=== PATIENT | female | born 1950 | race Caucasian/White ===

== ENCOUNTER 2018-11-24 18:47 | Emergency (ER) | payer MEDICARE, BC ==
[2018-11-24] MEDS ORDERED: Cephalexin CAP* 500 MG PO ONE ×2 (19:35→21:38)
--- NOTE | 2018-11-24 19:37 | ED ---
Lower Extremity - HPI Summary HPI Summary: This patient is a 67 year old F presenting to [facility] accompanied by female friend with a chief complaint of ankle ulcers since 11/09/18, per triage. Symptoms aggravated by nothing. Symptoms alleviated by nothing. Hx ankle ulcer, last dx was 36 yrs ago. Patient reports she has an ulcer in the back of her left and right ankle (right is healing better than her left), left lateral side of the left foot, swelling in her leg and foot, and discrete pain coming up her inner leg to her upper thigh. Pt reports she has some symptoms on her forearm and wrist but nothing that has developed into ulcers. 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 Pt reports that she visited Dr. 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 Pt reports she noticed at the appointment that the ulcer on her left foot is now white and has started to drip making her concerned that blood is not reaching that part of the foot leading to her visit to the ED today. Pt reports her leg is also never as swollen as it is now and that is redder today. Pt reports her ulcers hurt especially when she walked 1.8 miles yesterday. Patient denies fevers, appetite change, nausea, and hx heart dz. Pt reports she had a sonogram in 2016 which revealed no blood clots. Pt reports she takes B complex vitamin with folic acid, calcium, and NSAID and a low dose aspirin in evening with no other NSAIDs. - History of Current Complaint Chief Complaint: EDExtremityLower Stated Complaint: LEFT FOOT SWOLLEN,CHANGING COLORS PER PT Time Seen by Provider: 11/24/18 19:10 Hx Obtained From: Patient Onset/Duration: Still Present Pain Intensity: 8 Pain Scale Used: 0-10 Numeric Timing: Constant Associated Signs And Symptoms: Positive: Swelling, Redness Aggravating Factor(s): Nothing Alleviating Factor(s): Nothing - Allergies/Home Medications Allergies/Adverse Reactions: Allergies Allergy/AdvReac Type Severity Reaction Status Date / Time iodine Allergy Rash Verified 11/24/18 19:10 BANDAIDS Allergy Rash Uncoded 12/07/16 11:15 PMH/Surg Hx/FS Hx/Imm Hx Endocrine/Hematology History: Denies: Hx Diabetes Cardiovascular History: Denies: Hx Hypertension, Hx Pacemaker/ICD History: Denies: Hx Renal Disease Sensory History: Denies: Hx Hearing Aid Psychiatric History: Denies: Hx Panic Disorder - Cancer History Hx Chemotherapy: No Hx Radiation Therapy: No - Surgical History Surgery Procedure, Year, and Place: WISDOM TEETH Infectious Disease History: No Infectious Disease History: Denies: Traveled Outside the [place] in Last 30 Days - Family History Known Family History: Positive: Other - [place], Ulcers Negative: Hypertension, Diabetes - Social History Alcohol Use: Occasionally Hx Substance Use: No Substance Use Type: Reports: None Hx Tobacco Use: No Smoking Status (MU): Never Smoked Tobacco Review of Systems Positive: Other - denies appetite change. Negative: Fever Negative: Nausea Positive: Other - swelling of legs, ulcers in both feet and ankles, discrete pain coming up her inner leg to her upper thigh All Other Systems Reviewed And Are Negative: Yes Physical Exam - Summary Physical Exam Summary: Appearance: Well-appearing, Well-nourished, lying in bed comfortable Skin: Warm, dry, no obvious rash Eyes: sclera anicteric, no conjunctival pallor ENT: mucous membranes moist Neck: deferred Respiratory: No signs of respiratory distress Cardiovascular: Appears well perfused, pulses are nml Abdomen: deferred Musculoskeletal:left leg is swollen, erythematous and warm below the knee and into the foot, there is a large blister overlying the lateral side of the 5th MTP point which appears to be the center of acute inflammation, also a ulcer 2 cm long in medial ankle which has small amount of drainage, smaller ulcer on the medial side of the ankle which is dry Neurological: Awake and alert, mentation is normal, speech is fluent and appropriate Psychiatric: affect is normal, does not appear anxious or depressed Triage Information Reviewed: Yes Vital Signs On Initial Exam: Initial Vitals Temp Pulse Resp BP Pulse Ox 99.9 F 90 16 152/76 99 11/24/18 18:51 11/24/18 18:51 11/24/18 18:51 11/24/18 18:51 11/24/18 18:51 Vital Signs Reviewed: Yes Procedures - Sedation Patient Received Moderate/Deep Sedation with Procedure: No Diagnostics - Vital Signs Vital Signs Temp Pulse Resp BP Pulse Ox 11/24/18 18:51 99.9 F 90 16 152/76 99 - Laboratory Result Diagrams: 11/24/18 19:45 11/24/18 19:45 Lab Statement: Any lab studies that have been ordered have been reviewed, and results considered in the medical decision making process. - Ultrasound Venous Doppler Ultrasound Interpretation Completed By: Radiologist Summary of Ultrasound Findings: Per radiologist,. No DVT of the left lower extremity veins. ED physician has reviewed this report. Re-Evaluation - Re-Evaluation First Eval Re-Evaluation Time: 21:35 Comment: Blister of foot incised and drained with cloudy somewhat perulent drainage coming out. A sample was sent for culture. Lower Extremity Course/Dx - Course Course Of Treatment: This patient is a 67 year old F presenting to [facility] accompanied by female friend with a chief complaint of ankle ulcers since , per triage. Hx ankle ulcer, first dx was 36 yrs ago. Patient reports she has an ulcer in the back of her left and right ankle (right is healing better than her left) , left lateral side of the left foot, swelling in her leg and foot, and discrete pain coming up her inner leg to her upper thigh. 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 Pt reports she noticed at the ulcer on her left foot is now white and has started to drip. Patient denies fevers, appetite charge, nausea, and hx heart dz. Physical Exam Findings reveal no significant abnormalities except left leg is swollen, erythematous and warm below the ankle and into the foot, there is a large blister overlying the lateral side of the 5th MTP point which appears to be the center of acute inflammation, also a ulcer 2 cm long in medial ankle which has small amount of drainage, smaller ulcer on the medial side of the ankle which is dry. Venous Doppler study reveals no DVT of the left lower extremity veins. ED physician has reviewed this radiology report and agrees. Test results with no significant abnormalities expect for RBC 3.69 L, MCH 33 H, Absolute Lymphs 0.7 L, Absolute Monos 0.9 H, Sodium 134 L, Chloride 100 L, BUN/Creatinine Ratio 23.3 H, Glucose 105 H, C-Reactive Protein 35.39 H. In the ED course the patient was given 500 mg Keflex PO. Patient will be discharged with prescription for 500 mg Keflex and follow up from Dr. Sutton. The patient is agreeable with this plan. - Diagnoses Differential Diagnosis/HQI/PQRI: Positive: Cellulitis, DVT, Osteomyelitis Provider Diagnoses: Cellulitis Discharge ED - Sign-Out/Discharge Documenting (check all that apply): Patient Departure - discharge - Discharge Plan Condition: Good Disposition: HOME Prescriptions: Cephalexin CAP* [Keflex CAP*] 500 mg PO QID #40 cap Patient Education Materials: Cellulitis (ED) Referrals: Chayito Sutton MD [Primary Care Provider] - 4 Days Additional Instructions: It would be good if you could get in to your PCP sometime mid week so your progress can be followed. You may not improve much, indeed may somewhat worsen, before the antibiotics have a chance to really work on the infection in the skin. By mid week we will also have some results from the culture we took from the blister. The swelling should start to improve as the infection comes under control, but you can help by elevating the leg above your chest level when sleeping or sitting during the day. You can walk around and shower as per your normal, just change the dressings as needed. There will probably be some drainage from the blister I opened. - Billing Disposition and Condition Condition: GOOD Disposition: Home - Attestation Statements Document Initiated by Yamilet: Yes Documenting Joelleibe: Lois Soria Provider For Whom Yamilet is Documenting (Include Credential): Dr. Lauri Rutherford MD Scribe Attestation: I, Lois Soria, scribed for Dr. Lauri Rutherford MD on 11/25/18 at 1840. Scribe Documentation Reviewed: Yes Provider Attestation: The documentation as recorded by the Lois burnett accurately reflects the service I personally performed and the decisions made by me, Dr. Lauri Rutherford MD Status of Scribe Document: Viewed
[2018-11-24 19:53] LABS: ABS Lymphocytes 0.7 10^3/ul (1.0-4.8); ABS Monocytes 0.9 10^3/ul (0-0.8); ABS Neutrophils 5.6 10^3/ul (1.5-7.7); Eosinophil % 0.3 %; Hematocrit 36 % (35-47); Hemoglobin 12.2 g/dL (12.0-16.0); Lymphocyte % 9.8 %; Mean Corpuscular HGB Conc 34 g/dL (31-36); Mean Corpuscular Hemoglobin 33 pg (27-31); Mean Corpuscular Volume 96 fL (80-97); Mean Platelet Volume 7.8 fL (7.4-10.4); Platelet Count 254 10^3/uL (150-450); Red Blood Count 3.69 10^6 /uL (3.70-4.87); Red Cell Distribution Width 14 % (10-15); White Blood Count 7.2 10^3/uL (3.5-10.8)
[2018-11-24 20:07] LABS: BUN/Creatinine Ratio 23.3 (8-20); C Reactive Protein 35.39 mg/L (<8.01); Calcium 9.1 mg/dL (8.6-10.3); EGFR African American 119.9 (>60); EGFR Non-African American 99.1 (>60); Potassium 3.9 mmol/L (3.5-5.0)
[2018-11-24 22:16] VITALS: BP 129/78
--- NOTE | 2018-11-29 05:51 | ED ---
Imaging and Labs Follow Up Follow Up Type: Labs/Cultures Labs/Culture Result: wound culture grew Prevotella. Patient Communication/Plan: Placed on keflex - Keflex tends to be sensitive to prevotella according to UTD. Nothing further required Provider Diagnoses: Cellulitis
== END 2018-11-24 22:15 | disposition home or self-care (01) ==
LOC: ED 18:47
DX: L03.116 Cellulitis of left lower limb (principal); Z91.041 Radiographic dye allergy status; Z91.048 Other nonmedicinal substance allergy status
CPT/HCPCS: 36415; 80048; 85025; 86140; 87070; 87076; 87077; 87186; 87205; 87640; 87641; 99282; A9270-GY

== ENCOUNTER 2019-05-27 06:26 | Day surgery (SDC) | payer MEDICARE, BC ==
[2019-05-27] MEDS ORDERED: ceFAZolin 2 GM PREMIX in ORs 2 GM/50 ML BAG ONE (06:34)
[2019-05-27] MEDS ORDERED: Bupivacaine 0.5% SDV PF* 30ML VIAL ONE (07:09)
[2019-05-27] MEDS ORDERED: Midazolam* 1 MG/ML 2 ML VIAL (2 MG) ONE (07:20)
[2019-05-27] MEDS ORDERED: Lidocaine 2% PF * 5 ML VIAL ONE (07:21)
[2019-05-27] MEDS ORDERED: Propofol* 10 MG/ML 20 ML BTL ONE (07:21)
[2019-05-27] MEDS ORDERED: Lidocaine 1% INJ* 10 MG/ML 30 ML SDV ONE (07:26)
[2019-05-27] MEDS ORDERED: Ondansetron INJ* 2 MG/ML VIAL ONE (07:58)
[2019-05-27] MEDS ORDERED: Ketorolac INJ* 30 MG/ML 1 ML VIAL ONE (07:58)
[2019-05-27] MEDS ORDERED: Bacitracin OINTMENT* 0.5% 0.5 oz TUBE ONE (08:01)
[2019-05-27] MEDS ORDERED: Naloxone* 0.4 MG/ML 1 ML VIAL IV PRN (08:10)
[2019-05-27] MEDS ORDERED: Acetaminophen TAB* 325 MG PO PRN (08:10)
[2019-05-27 09:18] VITALS: BP 111/58
--- NOTE | 2019-05-27 10:40 | OP ---
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 OPERATIVE PROCEDURE: Excision left fifth metatarsal head. DESCRIPTION OF PROCEDURE: The patient was taken to the operating room where ankle Esmarch was applied with some local anesthetic. We made a 3 cm longitudinal incision dorsolaterally over the fifth metatarsophalangeal joint. Dissecting down through the skin to the dorsolateral aspect of the metatarsal head, we surrounded it and used a microsagittal saw to transect the neck obliquely. The head was removed and sent to Pathology. There were local cultures obtained from the fluid around it. I would say that there was fair amount of clear fluid, slightly cloudy, but no gross purulence. I turned the ulcer on the plantar aspect and then closed dorsolaterally after thorough irrigation with Monocryl and nylon and a compression dressing applied. [id number]/[facility] #: [id number] [facility]
== END 2019-05-27 09:35 | disposition home or self-care (01) ==
LOC: OREAST 06:26
PROVIDERS: ATTEND Orthopaedic Surgery
DX: M86.672 Other chronic osteomyelitis, left ankle and foot (principal); L97.529 Non-pressure chronic ulcer of other part of left foot with unspecified severity; G60.3 Idiopathic progressive neuropathy
CPT/HCPCS: 87070; 87073; 87205; 88304; 88311; A9270-GY; J0690; J1885; J2250; J2405; J2704; J3490